=== PATIENT | male | born 1995 ===

== ENCOUNTER 2017-11-14 03:09 | Emergency (ER) | payer SELFPAY ==
[2017-11-14 03:29] VITALS: O2SAT 100
--- NOTE | 2017-11-14 03:55 | ED PDOC ---
HPI: Abdomen Time Seen by Provider: 11/14/17 03:24 Chief Complaint (Nursing): Abdominal Pain Chief Complaint (Provider): Abdominal Pain, Dysuria History Per: Patient History/Exam Limitations: no limitations Onset/Duration Of Symptoms: Days (x3) Current Symptoms Are (Timing): Still Present Additional Complaint(s): 22 year old male presents to the ED for evaluation of lower abdominal pain associated with dysuria, onset three days ago. Patient states he last took Aleve at 02:30 prior to arrival, but persistent symptoms prompted his visit. He denies having any recent partners, his last being more than one year ago. Otherwise, (-) fever, (-) chills, (-) nausea, (-) vomiting, (-) diarrhea (-) penile discharge, (-) frequency, (-) urgency (-) flank pain (-) hematuria (-) history of STDs. PMD: none provided Past Medical History Reviewed: Historical Data, Nursing Documentation, Vital Signs Vital Signs: Last Vital Signs Temp 98.9 F 11/14/17 04:56 Pulse 61 11/14/17 04:56 Resp 18 11/14/17 04:56 BP 132/84 11/14/17 04:56 Pulse Ox 100 11/17/17 22:57 - Medical History PMH: No Chronic Diseases - Surgical History Surgical History: No Surg Hx - Family History Family History: States: Unknown Family Hx - Social History Current smoker - smoking cessation education provided: No Alcohol: Social Drugs: Denies - Home Medications Home Medications: Ambulatory Orders Medication Instructions Recorded Ciprofloxacin [Cipro] 500 mg PO BID #14 tab 11/14/17 Phenazopyridine HCl [Pyridium] 200 mg PO BID PRN #4 tablet 11/14/17 - Allergies Allergies/Adverse Reactions: Allergies Allergy/AdvReac Type Severity Reaction Status Date / Time No Known Allergies Allergy Verified 11/21/15 00:30 Review of Systems ROS Statement: Except As Marked, All Systems Reviewed And Found Negative Constitutional: Negative for: Fever, Chills Gastrointestinal: Positive for: Abdominal Pain (lower). Negative for: Nausea, Vomiting Genitourinary Male: Positive for: Dysuria. Negative for: Frequency (or urgency) , Penile Discharge Physical Exam - Reviewed Nursing Documentation Reviewed: Yes Vital Signs Reviewed: Yes - Physical Exam Comments: GENERAL APPEARANCE: Patient is awake, alert, oriented x 3, in no acute distress. Resting comfortably. SKIN: Warm, dry; (-) cyanosis. ENMT: Mucous membranes moist. NECK: Supple, FROM (-) tenderness, (-) stiffness CHEST AND RESPIRATORY: (-) rales, (-) rhonchi, (-) wheezes; breath sounds equal bilaterally. Speaking in full sentences, respirations even and nonlabored. HEART AND CARDIOVASCULAR: (-) irregularity; (-) murmur ABDOMEN AND GI: Soft (-) distention. Bowel sounds active x4; (+) mild suprapubic tenderness (-) guarding, (-) rebound, (-) CVA tenderness. 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 Normal uncircumcised male. (-) rash (-) vesicles (-) ulcers. (-) edema or erythema of foreskin. Foreskin easily retracted. (-) urethral discharge. (-) testicular tenderness EXTREMITIES: (-) deformity NEURO AND PSYCH: Mental status as above; (-) focal findings. Gait steady, speech clear. - ECG O2 Sat by Pulse Oximetry: 100 (RA) Pulse Ox Interpretation: Normal Medical Decision Making Medical Decision Making: Time: 03:48 Initial Impression: abdominal pain, dysuria Initial Plan: --Pyridium 200 mg PO --Urine culture --Urinalysis 0435 U/A (-) evidence of UTI Patient to be treated for clinical UTI. Cipro 500mg ordered. Gonorrhea/chlamydia test pending. STD prophylaxis not administered at this time. 0500 On re-evaluation, patient reports no additional symptoms. On exam, patient remains AAOx3, in no acute distress. Lungs clear to auscultation, cardiac RRR, abdomen soft, non-distended, repeat neuro exam shows no focal findings. Vitals stable. Lab /Diagnostic results d/w the patient in great detail. Diagnosis of abdominal pain, dysuria, clinical UTI d/w the patient. Based on history, exam and diagnostic results, plan will be for outpatient follow up. Patient instructed to follow-up with pmd / referral provided / the clinic in 1- 2 days without fail. Advised to take medication as prescribed. Return to the emergency room at any time for any new or worsening symptoms. Patient states he fully agrees with and understands discharge instructions. States that he agrees with the plan and disposition. Verbalized and repeated discharge instructions and plan. I have given the patient opportunity to ask any additional questions. Scribe Attestation: Documented by Arpita Mehta, acting as a scribe for Rosaura Denis PA-C. Provider Scribe Attestation: All medical record entries made by the Scribe were at my direction and personally dictated by me. I have reviewed the chart and agree that the record accurately reflects my personal performance of the history, physical exam, medical decision making, and the department course for this patient. I have also personally directed, reviewed, and agree with the discharge instructions and disposition. Disposition - Clinical Impression Clinical Impression: Suprapubic pain, UTI symptoms - Patient ED Disposition Is Patient to be Admitted: No Counseled Patient/Family Regarding: Studies Performed, Diagnosis, Need For Followup, Rx Given - Disposition Referrals: [facility] [Outside] Disposition: Routine/Home Disposition Time: 05:00 Condition: STABLE Additional Instructions: FOLLOW UP WITH CLINIC IN 1-2 DAYS WITHOUT FAIL. TAKE MEDICATION PRESCRIBED. RETURN TO ED WITH ANY NEW OR WORSENING SYMPTOMS. The emergency medical care you received today was directed at your acute symptoms. If you were prescribed any medication, please fill it and take as directed. It may take several days for your symptoms to resolve. Return to the Emergency Department if your symptoms worsen, do not improve, or if you have any other problems. Please contact your doctor in 2 days for re-evaluation and follow up / or call one of the physicians/clinics you have been referred to that are listed on the Patient Visit Information form that is included in your discharge packet. Bring any paperwork you were given at discharge with you along with any medications you are taking to your follow up visit. Our treatment cannot replace ongoing medical care by a primary care provider (PCP) outside of the emergency department. Prescriptions: Ciprofloxacin [Cipro] 500 mg PO BID #14 tab Phenazopyridine HCl [Pyridium] 200 mg PO BID PRN #4 tablet PRN Reason: urinary discomfort Instructions: Urinary Tract Infections in Adults Forms: Tailored (Canadian) Print Language: EGYPTIAN - POA Present On Arrival: None Results - Lab Results Lab Results: 11/14/17 11/14/17 04:51 03:53 Urine Color Colorless Urine Clarity Clear Urine pH 7.0 Ur Specific Cosby < 1.005 Urine Protein Negative Urine Glucose (UA) Neg Urine Ketones Negative Urine Blood Negative Urine Nitrate Negative Urine Bilirubin Negative Urine Urobilinogen 0.2-1.0 Ur Leukocyte Esterase Neg Urine Microscopic WBC < 1 C.trachomatis RNA (TMA) Not detected N.gonorrhoeae RNA (TMA) Not detected
[2017-11-14 03:59] LABS: URINE BILIRUBIN NEGATIVE (NEGATIVE); URINE BLOOD NEGATIVE (NEGATIVE); URINE CLARITY CLEAR (Clear); URINE COLOR COLORLESS (YELLOW); URINE GLUCOSE (UA) NEG (Normal); URINE LEUKOCYTE ESTERASE NEG Leu/uL (Negative); URINE PROTEIN NEGATIVE (NEGATIVE); URINE UROBILINOGEN 0.2-1.0 mg/dL (0.2-1.0)
[2017-11-14 04:59] VITALS: BP 132/84; PULSE 61; RESP 18; TEMP 98.9
== END 2017-11-14 05:07 | disposition home or self-care (01) ==
LOC: H.ER 03:09
DX: N39.0 Urinary tract infection, site not specified (principal)

== ENCOUNTER 2017-12-22 21:23 | Emergency (ER) | payer SELFPAY ==
[2017-12-22 21:38] VITALS: RESP 18; O2SAT 100
[2017-12-22] MEDS ORDERED: Albuterol-Ipratrop 3 mg / 0.5 (3 ml) UD IH STA (22:07)
--- NOTE | 2017-12-22 22:20 | ED PDOC ---
HPI: CCC, URI, Sore Throat Time Seen by Provider: 12/22/17 21:42 Chief Complaint (Nursing): Chest Pain Chief Complaint (Provider): cough, back pain History Per: Patient History/Exam Limitations: no limitations Onset/Duration Of Symptoms: Days (3 months) Current Symptoms Are (Timing): Still Present Associated Symptoms: Cough, Sputum Additional Complaint(s): 23 y/o male presents for evaluation of productive cough x 3 months. Associated tactile fevers, upper back pain x 3 days, mouth sore x 1 day. Denies nasal congestion/discharge, vomiting, chest pain, shortness of breath, palpitations, abdominal pain, leg pain/swelling, recent travel, sick contacts. No medications taken for relief thus far. Past Medical History Reviewed: Historical Data, Nursing Documentation, Vital Signs Vital Signs: Last Vital Signs Temp 99.4 F 12/22/17 22:08 Pulse 78 12/22/17 21:35 Resp 18 12/22/17 21:35 BP 148/78 12/22/17 21:35 Pulse Ox 100 12/22/17 22:21 - Medical History PMH: No Chronic Diseases - Surgical History Surgical History: No Surg Hx - Family History Family History: States: Unknown Family Hx - Living Arrangements Living Arrangements: With Family - Social History Current smoker - smoking cessation education provided: No Alcohol: None Drugs: Denies - Home Medications Home Medications: Ambulatory Orders Medication Instructions Recorded Ciprofloxacin [Cipro] 500 mg PO BID #14 tab 11/14/17 Phenazopyridine HCl [Pyridium] 200 mg PO BID PRN #4 tablet 11/14/17 Albuterol HFA [Ventolin HFA 90 1 - 2 puff IH Q4 PRN #1 inh 12/22/17 mcg/actuation (8 g)] Azithromycin [Zithromax] 250 mg PO DAILY #1 packet 12/22/17 Ibuprofen [Motrin Tab] 1 tab PO Q6 PRN #15 tab 12/22/17 - Allergies Allergies/Adverse Reactions: Allergies Allergy/AdvReac Type Severity Reaction Status Date / Time No Known Allergies Allergy Verified 11/21/15 00:30 Review of Systems ROS Statement: Except As Marked, All Systems Reviewed And Found Negative ENT: Positive for: Mouth Pain Respiratory: Positive for: Cough, Sputum Musculoskeletal: Positive for: Back Pain Physical Exam - Reviewed Nursing Documentation Reviewed: Yes Vital Signs Reviewed: Yes - Physical Exam Appears: Positive for: Well, Non-toxic, No Acute Distress Head Exam: Positive for: ATRAUMATIC, NORMAL INSPECTION, NORMOCEPHALIC Skin: Positive for: Normal Color Eye Exam: Positive for: Normal appearance ENT: Positive for: Other (aphthous ulcer left upper gingiva/inner lip border). Negative for: Pharyngeal Erythema, Tonsillar Exudate, Tonsillar Swelling Cardiovascular/Chest: Positive for: Regular Rate, Rhythm Respiratory: Positive for: Normal Breath Sounds Gastrointestinal/Abdominal: Positive for: Normal Exam Back: Positive for: Normal Inspection Extremity: Positive for: Normal ROM Neurologic/Psych: Positive for: Alert, Oriented (x3) - Laboratory Results Result Diagrams: 12/22/17 22:15 12/22/17 22:15 - ECG ECG: Positive for: Viewed By Me (reviewed by ED attending) ECG Rhythm: Positive for: Sinus Rhythm O2 Sat by Pulse Oximetry: 100 Pulse Ox Interpretation: Normal - Radiology X-Ray: Viewed By Me X-Ray Interpretation: No Acute Disease - Progress ED Course And Treament: labs, ekg, chest xray, IV toradol, duoneb On re-eval, patient states he is feeling better Patient educated on findings, discharged with rx zpak, albuterol, ibuprofen Advised follow up PMD 2-3 days Return precautions given Disposition - Clinical Impression Clinical Impression: Aphthous ulcer of mouth, Bronchitis - Patient ED Disposition Is Patient to be Admitted: No Counseled Patient/Family Regarding: Studies Performed, Diagnosis, Need For Followup, Rx Given - Disposition Referrals: [facility] [Outside] Disposition: Routine/Home Disposition Time: 23:54 Condition: IMPROVED Prescriptions: Albuterol HFA [Ventolin HFA 90 mcg/actuation (8 g)] 1 - 2 puff IH Q4 PRN #1 inh PRN Reason: Cough Azithromycin [Zithromax] 250 mg PO DAILY #1 packet Ibuprofen [Motrin Tab] 1 tab PO Q6 PRN #15 tab PRN Reason: Pain, Moderate (4-7) Instructions: Acute Bronchitis, Mouth Sores Print Language: NEPALESE
[2017-12-22 22:24] LABS: BASO # 0.1 K/uL (0.0-0.2); BASO % 0.5 % (0.0-2.0); EOS # 0.1 K/uL (0.0-0.7); HEMOGLOBIN 13.3 g/dL (12.0-18.0); LYMPH # 2.8 K/uL (1.0-4.3); LYMPH % 25.2 % (20.0-40.0); MEAN CELL VOLUME 85.6 fl (80.0-94.0); MEAN CORPUSCULAR HGB CONC 32.7 g/dL (33.0-37.0); MEAN PLATELET VOLUME 9.5 fl (7.2-11.7); MONO # 1.2 K/uL (0.0-0.8); MONO % 10.9 % (0.0-10.0); NEUT # 6.8 K/uL (1.8-7.0); NEUT % 62.4 % (50.0-75.0); RBC 4.76 Mil/uL (4.40-5.90)
[2017-12-22 22:36] LABS: ALB/GLOB RATIO 1.3 (1.0-2.1); ALBUMIN 4.9 g/dL (3.5-5.0); AST/SGOT 29 U/L (17-59); BLOOD UREA NITROGEN 13 mg/dl (9-20); GFR NON-AFRICAN AMERICAN > 60
[2017-12-22 22:37] LABS: ALT/SGPT 27 U/L (21-72)
[2017-12-22 22:40] LABS: VENOUS BLOOD GAS BASE EXCESS 6.1 mmol/L (0.0-2.0); VENOUS BLOOD GAS PCO2 49 mmHg (40-60); VENOUS BLOOD GAS PO2 37 mm/Hg (30-55); VENOUS BLOOD PH 7.42 (7.32-7.43)
[2017-12-22 23:57] VITALS: PULSE 69; TEMP 99.1
[2017-12-22 23:59] VITALS: BP 114/72
--- NOTE | 2017-12-23 09:31 | CARD ---
APPROVED REPORT Date of service: 12/22/2017 <Conclusion> Normal sinus rhythm with sinus arrhythmia Rightward axis Borderline ECG
== END 2017-12-23 00:20 | disposition home or self-care (01) ==
LOC: H.ER 21:23 → EDBD 21:23 → H.ER 12-23 00:20
DX: J40 Bronchitis, not specified as acute or chronic (principal); K12.0 Recurrent oral aphthae
CPT/HCPCS: 71046; 80053; 82803; 84484; 85025; 87040; 87390; 93005; 99284; J1885